=== PATIENT | female | born 1985 | race African-American/Black ===

== ENCOUNTER 2019-03-21 05:30 | Inpatient (IN) | payer OTHER ==
--- NOTE | 2019-03-20 21:42 | PDOC.LDHP ---
Labor and Delivery H&P Chief complaint: scheduled induction HPI: 33 y/o at 39 and 0/7 weeks presents for term induction of labor today. Grav: 3 Para: 2 Current complications: none Abnormal US findings: No Current medications: pre- vitamins Previous surgical history: none Social history: none - Physical Exam Vital signs reviewed and normal: yes General: NAD Heart: RRR Lungs: CTAB Abdomen: gravid Extremeties: no edema FHT: category 1 - Assessment L&D Assessment: elective induction at term - Plan Plan: admit to L&D, cervical ripening
[~2019-03-21 05:30] MED LIST: Carboprost 250 MCG/ML AMP IM PRN; Diphenoxylate HCl/Atropine Tablet PO PRN; Docusate 100 MG CAP PO PRN; HYDROcodone/Acetaminophen 5/325 mg Tablet PO PRN; Ibuprofen 800 MG TAB PO PRN; Lidocaine 1% (PF) 30 ML VIAL SC PRN; Methylergonovine 0.2 MG/ML VIAL IM PRN; Misoprostol 200 MCG TAB PR PRN; NS w/ Oxytocin 10 units 500 ML IV SCH; Ondansetron PF 4 MG/2 ML Vial IVP PRN; Promethazine HCl 25 MG/ML VIAL IM PRN; hydrALAZINE 20 MG/ML VIAL SLOW IVP PRN
[2019-03-21] MEDS: Lactated Ringer's 1,000 ML IV SCH ×3 (06:30→11:22)
[2019-03-21 06:31] VITALS: BMI 37.5
[2019-03-21 06:41] LABS: Hemoglobin 11.7 g/dL (12.0-16.0); Mean Corpuscular HGB CONC 33.3 g/dL (32.0-36.0); Mean Corpuscular Hemoglobin 30.5 pg (27.0-31.0); Mean Corpuscular Volume 91.6 fL (78.0-98.0); Platelet Count 159 thou/uL (130-400); RBC Distribution Width 12.4 % (11.5-14.5); Red Blood Cell (RBC) Count 3.83 mill/uL (4.20-5.40)
[2019-03-21 07:19] LABS: Syphilis Antibody Nonreactive (Nonreactive); Syphilis Antibody Index 0.03 S/CO (<1.00 Non-Reactive)
[2019-03-21 07:40] LABS: HBSAg Index 0.15 S/CO (0-0.99); Hep B Surf Ag Non-Reactive S/CO (NonReactive)
[2019-03-21] MEDS: NS w/ Oxytocin 10 units 500 ML IV SCH (07:42)
[2019-03-21] MEDS ORDERED: Fentanyl 4 mcg/Bup 0.1% Cadd 100 ML ONE ×2 (09:02→16:39)
[2019-03-21] MEDS ORDERED: Lidocaine 1.5%/Epinephrine 1:200,000 5 ML AMPUL IJ ONE (09:30)
[2019-03-21] MEDS ORDERED: Lactated Ringer's 500 ML IV PRN (09:39)
[2019-03-21] MEDS ORDERED: diphenhydrAMINE 50 MG/ML VIAL IVP PRN (09:39)
[2019-03-21] MEDS ORDERED: Acetaminophen 325 MG TAB PO PRN (09:39)
[2019-03-21] MEDS ORDERED: Ondansetron PF 4 MG/2 ML Vial IVP PRN ×2 (09:39→22:40)
[2019-03-21] MEDS ORDERED: ePHEDrine/0.9% NaCl/PF SYRINGE 50 mg/10 ml SLOW IVP PRN (09:39)
[2019-03-21] MEDS ORDERED: Naloxone HCl 0.4 mg/ml Vial IVP PRN ×2 (09:39)
[2019-03-21] MEDS ORDERED: Promethazine HCl 25 MG/ML VIAL IM PRN ×2 (09:39→22:40)
[2019-03-21] MEDS ORDERED: Fentanyl 4 mcg/Bupivacaine 0.1% Cassette 100 ML EPIDURAL SCH (09:45)
[2019-03-21] MEDS ORDERED: Communication Order-Pharmacy FS SCH (09:45)
[2019-03-21] MEDS: NS / Oxytocin 40 units/1000ml 1,000 ML IV PRN ×2 (19:51→21:45)
[2019-03-21] MEDS ORDERED: HYDROcodone/Acetaminophen 5/325 mg Tablet PO PRN ×2 (22:40)
[2019-03-21] MEDS ORDERED: Lanolin Ointment 7 GM TUBE TOP PRN (22:40)
[2019-03-21] MEDS ORDERED: Milk Of Magnesia 30 ML UDCUP PO PRN (22:40)
[2019-03-21] MEDS ORDERED: Misoprostol 200 MCG TAB VAG PRN (22:40)
[2019-03-21] MEDS ORDERED: Benzocaine-Menthol 82.5 ML CAN TOP PRN (22:40)
[2019-03-21] MEDS ORDERED: Bisacodyl 10 MG SUPP PR PRN (22:40)
[2019-03-21] MEDS ORDERED: Methylergonovine 0.2 MG/ML VIAL IM PRN (22:40)
[2019-03-21] MEDS ORDERED: hydrALAZINE 20 MG/ML VIAL SLOW IVP PRN (22:40)
[2019-03-21] MEDS ORDERED: NS / Oxytocin 40 units/1000ml 1,000 ML IV SCH (22:40)
[2019-03-21] MEDS ORDERED: Preparation H Ointment 28 GM TUBE PR PRN (22:40)
[2019-03-21] MEDS ORDERED: diphenhydrAMINE 25 MG CAP PO PRN (22:40)
[2019-03-22] MEDS: Ibuprofen 800 MG TAB PO SCH ×5 (00:47→22:44)
[2019-03-22] MEDS: Docusate Calcium (SURFAK) 240 MG CAP PO SCH ×4 (01:36→22:43)
[2019-03-22] MEDS: Lactated Ringer's 1,000 ML IV SCH (01:36)
[2019-03-22] MEDS: NS w/ Oxytocin 10 units 500 ML IV SCH (01:37)
[2019-03-22 04:57] LABS: Hemoglobin 10.7 g/dL (12.0-16.0); Mean Corpuscular HGB CONC 34.3 g/dL (32.0-36.0); Mean Corpuscular Hemoglobin 31.8 pg (27.0-31.0); Mean Corpuscular Volume 92.7 fL (78.0-98.0); Mean Platelet Volume 9.3 fL (7.4-10.4); Platelet Count 144 thou/uL (130-400); RBC Distribution Width 12.3 % (11.5-14.5); Red Blood Cell (RBC) Count 3.38 mill/uL (4.20-5.40); White Blood Cell (WBC) Count 8.6 thou/uL (4.8-10.8)
[2019-03-22] MEDS: Ferrous Sulfate 325 MG TAB PO SCH ×2 (08:39→15:29)
[2019-03-22] MEDS ORDERED: Measles/Mumps/Rubella 10 MCG/0.5 ML VIAL SC ONE (09:00)
[2019-03-22] MEDS ORDERED: Adacel (T-DAP) 0.5 ML SYRINGE IM ONE (09:00)
[2019-03-22] MEDS ORDERED: Prenatal Vitamin 1 TAB PO SCH (09:00)
[2019-03-22] MEDS ORDERED: Varicella virus, LIVE 0.5 ML VIAL SC ONE (09:00)
--- NOTE | 2019-03-22 20:37 | PDOC.PP ---
Post Progress Note Post Day #: 1 PO intake tolerated: yes Flatus: yes Ambulation: yes Vital Signs (12 hours) Temp Pulse Resp BP Pulse Ox 03/22/19 19:22 98.1 F 73 12 108/57 L 100 03/22/19 15:15 98.5 F 70 16 98/51 L 98 03/22/19 12:08 98.1 F 67 20 124/62 Weight Weight 226 lb - Physical Examination General: NAD Cardiovascular: no m/r/g, RRR Respiratory: clear to auscultation bilaterally, non-labored breathing Abdominal: + bowel sounds, lochia, no distention Extremities: negative homans (B) Neurological: no gross focal deficits Psychiatric: A&Ox3, normal affect Result Diagrams: 03/22/19 04:32 Additional Labs: Post Labs Blood Type A POSITIVE 03/21/19 08:42 Hep Bs Antigen Non-Reactive S/CO (NonReactive) 03/21/19 06:31
[2019-03-22] MEDS ORDERED: Benzocaine-Menthol 82.5 ML CAN TOP PRN (22:07)
[2019-03-22] MEDS ORDERED: diphenhydrAMINE 50 MG/ML VIAL IVP PRN (22:07)
--- NOTE | 2019-03-23 05:38 | DN ---
DATE OF PROCEDURE: 03/21/2019 TIME OF SERVICE: 1947 [employer] time. PREOPERATIVE DIAGNOSIS: Intrauterine at 39 weeks and 0 day with a term elective induction of labor. POSTOPERATIVE DIAGNOSIS: Intrauterine at 39 weeks and 0 day with a term elective induction of labor. PROCEDURE PERFORMED: Spontaneous vaginal delivery over an intact perineum with a left periurethral laceration. FINDINGS: Viable male weighing 2949 g or 6 pounds 8 ounces. Apgars of 8 and 9. QUANTITATIVE BLOOD LOSS: 364 mL reported. COMPLICATIONS: None. PROCEDURE IN DETAIL: The patient presented to [facility] where she was admitted to the labor and delivery service. The patient underwent a normal and uneventful labor with normal cervical dilatation until she was found to be completely dilated. She was then allowed to push and was able to bring the baby down and delivered the baby in a vertex presentation without difficulties. Once the head delivered in occiput anterior position, the shoulders followed spontaneously along with the rest of the baby's body. Once out the baby's mouth and nose were bulb suctioned. The cord was clamped and cut and baby was handed to waiting attendants. Cord blood was collected. Gentle fundal massage was performed and the placenta delivered intact without problems. Hemostasis was assured. Quantitative blood loss was calculated. Inspection of the cervix, vaginal vault, and perineum did not reveal any lacerations needing suturing. Once again, hemostasis was within normal limits and the patient was allowed to recover in the labor and delivery room. Baby went to nursery. Job ID: [id number]
[2019-03-23] MEDS: Ibuprofen 800 MG TAB PO SCH (06:33)
[2019-03-23] MEDS ORDERED: Ferrous Sulfate 325 MG TAB PO SCH (08:00)
[2019-03-23 08:16] VITALS: BP 107/64; TEMP 98.2
[2019-03-23] MEDS ORDERED: Prenatal Vitamin 1 TAB PO SCH (09:00)
[2019-03-23] MEDS: Docusate Calcium (SURFAK) 240 MG CAP PO SCH (09:43)
== END 2019-03-23 10:50 | disposition home or self-care (01) | DRG 807 ==
LOC: L&D 06:01 → 3SW 23:04
PROVIDERS: ADMIT Obstetrics & Gynecology; ATTEND Obstetrics & Gynecology
PROC: 10E0XZZ Delivery of Products of Conception, External Approach (ICD-10-PCS; principal; 2019-03-22)
PROC: 10907ZC Drainage of Amniotic Fluid, Therapeutic from Products of Conception, Via Natural or Artificial Opening (ICD-10-PCS; 2019-03-22)
PROC: 3E033VJ Introduction of Other Hormone into Peripheral Vein, Percutaneous Approach (ICD-10-PCS; 2019-03-22)
DX: O80 Encounter for full-term uncomplicated delivery (principal); Z37.0 Single live birth; Z3A.39 39 weeks gestation of pregnancy
CPT/HCPCS: 36415; 51702; 85027; 86780; 86850; 86900; 86901; 87340; J1200; J2001; J2405; J2590; J3490